=== PATIENT | male | born 2000 | race Two or more races ===

== ENCOUNTER 2025-01-17 16:36 | Emergency (ER) | payer SELFPAY ==
[~2025-01-17] VITALS: Ht 175.3 cm; Wt 63.5 kg
[2025-01-17 17:44] VITALS: BP 121/68; TEMP 97.8; O2SAT 98
[2025-01-17] MEDS ORDERED: KETOROLAC TROMETHAMINE 15 MG/ML VIAL ONE (19:54)
[2025-01-17] MEDS ORDERED: ACETAMINOPHEN 325 MG TABLET ONE (19:54)
[2025-01-17] MEDS: ACETAMINOPHEN 325 MG TABLET PO ONE (20:01)
[2025-01-17] MEDS: KETOROLAC TROMETHAMINE 15 MG/ML VIAL IM ONE (20:01)
== END 2025-01-17 20:43 | disposition home or self-care (01) ==
LOC: ER 18:49
DX: S93.491A Sprain of other ligament of right ankle, initial encounter (principal); F20.9 Schizophrenia, unspecified; R05.9 Cough, unspecified; X58.XXXA Exposure to other specified factors, initial encounter; Y93.72 Activity, wrestling; Y92.89 Other specified places as the place of occurrence of the external cause; Y99.8 Other external cause status
CPT/HCPCS: 99284; 71045; 96372; 73610; J1885